=== PATIENT | male | born 1980 | race Caucasian/White ===

== ENCOUNTER 2016-10-20 15:16 | Emergency (ER) | payer MEDICAID ==
[~2016-10-20] VITALS: Ht 170.2 cm; Wt 84.5 kg
[~2016-10-20 15:16] MED LIST: AMO500 PO; D-ME473S18 PO; D-ME473S2 PO; IBUP-1542 PO
[2016-10-20 15:20] VITALS: Ht 170.2 cm; Wt 84.5 kg
[2016-10-20] MEDS ORDERED: GUAI-637 PO (15:25)
[2016-10-20] MEDS ORDERED: IBUP-1542 PO (15:25)
[2016-10-20] MEDS ORDERED: SODI126M NASAL (15:25)
--- NOTE | 2016-10-20 15:31 | ERD ---
ER Documentation Chief Complaint Date/Time DATE: 10/20/16 TIME: 15:26 Chief Complaint sore throat and cough x 10 days HPI 35-year-old male complaining of sore throat and runny nose 10 days. Patient stated that he had tactile fever the first 5 days, and the fever had resolved. He is currently complaining of runny nose tinged with blood and throat pain. He has slight cough. Denies shortness of breath. Denies abdominal pain, vomiting, or diarrhea. Denies headache or neck pain. ROS All systems reviewed and are negative except as per history of present illness. Medications Home Meds Active Scripts Ibuprofen* (Motrin*) 600 Mg Tab, 600 MG PO Q6H Y for PAIN AND OR ELEVATED TEMP, #30 TAB Prov:CHRISTA SANDERS OIL DISPENSER 10/20/16 Guaifenesin* (Robitussin*) 100 Mg/5 Ml Syrup, 200 MG PO Q4H Y for COUGH, #120 ML Prov:CHRISTA SANDERS NP 10/20/16 Sodium Chloride (Saline Nasal Mist) 126 Ml Mist, 2 SPRAY NASAL Q2H Y for NASAL CONGESTION, #1 BOTTLE Prov:CHRISTA SANDERS OIL DISPENSER 10/20/16 Dextromethorphan Hb-Promethazine Hcl (Promethazine DM Syrup) 473 Ml Syrup, 10 ML PO Q6H Y for COUGH, #4 OZ Prov:KAREN KU 03/10/16 Ibuprofen* (Motrin*) 600 Mg Tab, 600 MG PO Q6, #30 TAB Prov:KAREN KU 03/10/16 Dextromethorphan Hb-Promethazine Hcl* (Promethazine DM* Syrup) 473 Ml Syrup, 5 ML PO Q6 Y for COUGH for 5 Days, ML Prov:CESAR GARCIA MD 08/31/15 Amoxicillin* (Amoxicillin*) 500 Mg Cap, 500 MG PO TID for 10 Days, CAP Prov:CESAR GARCIA MD 08/31/15 Ibuprofen* (Motrin*) 600 Mg Tab, 600 MG PO Q6, #16 TAB Prov:CESAR GARCIA MD 08/31/15 PMhx/Soc Medical and Surgical Hx: pt denies Medical Hx History of Surgery: No Anesthesia Reaction: No Hx Neurological Disorder: No Hx Respiratory Disorders: No Hx Cardiac Disorders: No Hx Psychiatric Problems: No Hx Miscellaneous Medical Probl: No Hx Alcohol Use: No Hx Substance Use: No Hx Tobacco Use: No Physical Exam Vitals Vital Signs Date Time Temp Pulse Resp B/P Pulse Ox O2 Delivery O2 Flow Rate FiO2 10/20/16 15:20 98.3 78 18 137/81 97 Physical Exam General: Well-developed, well-nourished, conscious and coherent, in no distress Skin: Warm and dry without rash, good texture and turgor Head: Normocephalic without evidence of trauma Eyes: Sclera and conjunctivae normal; pupils equal, round, and reactive to light; extraocular movements are intact Ears: Canals are patent. Tympanic membranes are clear Nose/Face: Without rhinorrhea Mouth/throat: Mucous membranes are moist. Posterior pharynx mildly erythematous without exudates Neck: Supple without meningismus or adenopathy. Carotids are equal. Trachea midline. No bruits or JVD Chest: Normal AP diameter. Good expansion without retractions. Nontender. Lungs are clear to auscultate bilaterally with good tidal volume Heart: Regular rate and rhythm. No murmur, rub, or gallops heard Abdomen: Soft and nontender without masses, guarding, or rebound. Bowel sounds are active. No hepatosplenomegaly Extremities: Full range of motion. Good strength bilaterally. No clubbing, cyanosis, or edema. Peripheral pulses are intact. Sensation intact Neuro: Alert and oriented 4, GCS 15. Cranial nerves grossly intact. Motor and sensory exams nonfocal. Moves all extremities. Speech clear. Gait normal Procedures/MDM Patient is afebrile, in no respiratory distress. Lungs are clear to auscultate. I doubt that patient has pneumonia or bronchitis. Likely patient's symptoms are result of viral upper respiratory infection. Patient appears well, stable for discharge and outpatient management. Medical decision making shared with patient and family. Education provided to patient and family. Patient and family expressed understanding of the plan. Medications on discharge: Saline nasal spray, ibuprofen, Robitussin. Follow-up: Primary care provider in 2-3 days or return to ED if worse. Departure Diagnosis: Primary Impression: URI (upper respiratory infection) URI type: acute nasopharyngitis (common cold) Qualified Code: J00 - Acute nasopharyngitis Condition: Good Patient Instructions: Adult Self-Care for Colds [facility] Usted se valenzuela hecho un examen mdico de control que le indica que no est en wes condicin que requiera tratamiento urgente en el Departamento de Emergencia. Un estudio ms profundo y el tratamiento de corrigan condicin pueden esperar sin ningn riesgo hasta que usted sea atendida/o en el consultorio de corrigan mdico o wes cl sybil. Es responsabilidad suya arreglar wes hugo para el seguimiento del allison. MANEJO DE CONDICIONES NO URGENTES EN EL FUTURO 1) Si usted tiene un mdico de atencin primaria: Usted debera llamar a corrigan mdico de atencin primaria antes de venir al departamento de emergencia. Despus de las horas de consultorio, corrigan doctor o corrigan asociado/a est disponible por telfono. El mdico o enfermero de lupe en el servicio telefnico puede asesorarle por mona medio para atender el problema, o allison contrario se puede programar wes hugo. 2) Si usted no tiene un mdico de atencin primaria: Llame al mdico o clnica de referencia que aparece abajo pascual las horas de consultorio para hacer ews hugo para que le vean. CLINICAS: [facility] [phone] [id number] [facility] [phone] [facility] [phone] [facility] [phone] [facility]. [facility] [phone] [address] [facility]. [phone] [address] Additional Instructions: Llame al doctor MAANA y myra wes HUGO PARA DENTRO DE 2-3 SANDHU.Dgale a la secretaria que nosotros le instruimos hacer esta hugo.Avise o llame si corrigan condicin se empeora antes de la hugo. Regresa aqui si peor o no mejor. CHRISTA SANDERS. SOFY October 20, 2016 15:31
== END 2016-10-20 15:26 | disposition home or self-care (01) ==
LOC: E/R 15:16
DX: J00 Acute nasopharyngitis [common cold] (principal); R40.2412 Glasgow coma scale score 13-15, at arrival to emergency department
CPT/HCPCS: 99283

== ENCOUNTER 2018-09-12 16:24 | Emergency (ER) | payer MEDICAID, OTHER ==
[~2018-09-12] VITALS: Ht 177.8 cm; Wt 84.4 kg
[~2018-09-12 16:24] MED LIST changes: -AMO500 PO; +AMOX500C2 PO; +GUAI-637 PO; +SODI126M NASAL
[2018-09-12 16:25] VITALS: Ht 177.8 cm; Wt 84.4 kg
[2018-09-12] MEDS ORDERED: FAMOTIDINE 20 MG TAB PO STA (17:05)
--- NOTE | 2018-09-12 17:31 | ERD ---
ER Documentation Chief Complaint Chief Complaint U/R/Q abd pain x 3 days, spitting up a little blood x today HPI 37-year-old male with no significant past medical history presenting with right upper quadrant pain for the past 3 days. The pain is constant, radiating to the back, with no alleviating or exacerbating factors. He rates the pain as a 6 out of 10. No associated fever, chills, nausea, vomiting, cough, shortness of rafia ath, chest pain, diarrhea, or constipation. He states that he has been "spitting up" blood occasionally but denies any vomiting or coughing up blood. The amount of blood is very minimal. He denies any chronic NSAID use, history of gastritis or ulcers. ROS All systems reviewed and are negative except as per history of present illness. Medications Home Meds Active Scripts Omeprazole* (Omeprazole*) 40 Mg Capsule.dr, 40 MG PO DAILY, #10 CAP Prov:FRANK BELTRAN MD 09/12/18 Ibuprofen* (Motrin*) 600 Mg Tab, 600 MG PO Q6H PRN for PAIN AND OR ELEVATED TEMP, #30 TAB Prov:CHRISTA SANDERS NP 10/20/16 Guaifenesin* (Robitussin*) 100 Mg/5 Ml Syrup, 200 MG PO Q4H PRN for COUGH, #120 ML Prov:CHRISTA SANDERS NP 10/20/16 Sodium Chloride (Saline Nasal Mist) 126 Ml Mist, 2 SPRAY NASAL Q2H PRN for NASAL CONGESTION, #1 BOTTLE Prov:CHRISTA SANDERS NP 10/20/16 Dextromethorphan Hb-Promethazine Hcl (Promethazine DM Syrup) 473 Ml Syrup, 10 ML PO Q6H PRN for COUGH, #4 OZ Prov:ELMIRA,KAREN C 03/10/16 Ibuprofen* (Motrin*) 600 Mg Tab, 600 MG PO Q6, #30 TAB Prov:ELMIRA,KAREN C 03/10/16 Dextromethorphan Hb-Promethazine Hcl* (Promethazine DM* Syrup) 473 Ml Syrup, 5 ML PO Q6 PRN for COUGH for 5 Days, ML Prov:CESAR GARCIA MD 08/31/15 Amoxicillin* (Amoxicillin*) 500 Mg Cap, 500 MG PO TID for 10 Days, CAP Prov:CESAR GARCIA MD 08/31/15 Ibuprofen* (Motrin*) 600 Mg Tab, 600 MG PO Q6, #16 TAB Prov:CESAR GARCIA MD 08/31/15 PMhx/Soc Medical and Surgical Hx: pt denies Medical Hx, pt denies Surgical Hx History of Surgery: No Anesthesia Reaction: No Hx Neurological Disorder: No Hx Respiratory Disorders: No Hx Cardiac Disorders: No Hx Psychiatric Problems: No Hx Miscellaneous Medical Probl: No Hx Alcohol Use: No Hx Substance Use: No Hx Tobacco Use: No Smoking Status: Never smoker FmHx Family History: No diabetes Physical Exam Vitals Vital Signs Date Temp Pulse Resp B/P (MAP) Pulse Ox O2 O2 Flow FiO2 Time Delivery Rate 09/12/18 98.8 63 18 117/73 100 Room Air 18:46 (88) 09/12/18 97.2 62 18 123/77 97 16:25 (92) Physical Exam Const: No acute distress, well-appearing, nontoxic Head: Atraumatic Eyes: Normal Conjunctiva ENT: Normal External Ears, Nose and Mouth. Neck: Full range of motion. No meningismus. Resp: Clear to auscultation bilaterally Cardio: Regular rate and rhythm, no murmurs Abd: Soft, non tender, non distended. No palpable masses. No hepatosplenome arash. Normal bowel sounds Skin: No petechiae or rashes Back: No midline or flank tenderness Ext: No cyanosis, or edema Neur: Awake and alert Psych: Normal Mood and Affect Result Diagram: 09/12/18 1726 09/12/18 1726 Results 24 hrs Laboratory Tests Test 09/12/18 17:26 White Blood Count 10.4 10^3/ul Red Blood Count 5.30 10^6/ul Hemoglobin 15.0 g/dl Hematocrit 45.6 % Mean Corpuscular Volume 86.0 fl Mean Corpuscular Hemoglobin 28.3 pg Mean Corpuscular Hemoglobin Concent 32.9 g/dl Red Cell Distribution Width 13.9 % Platelet Count 290 10^3/UL Mean Platelet Volume 10.0 fl Immature Granulocytes % 0.800 % Neutrophils % 54.6 % Lymphocytes % 34.2 % Monocytes % 7.1 % Eosinophils % 2.3 % Basophils % 1.0 % Nucleated Red Blood Cells % 0.0 /100WBC Immature Granulocytes # 0.080 10^3/ul Neutrophils # 5.7 10^3/ul Lymphocytes # 3.6 10^3/ul Monocytes # 0.7 10^3/ul Eosinophils # 0.2 10^3/ul Basophils # 0.1 10^3/ul Nucleated Red Blood Cells # 0.0 10^3/ul Urine Color COLORLESS Urine Clarity CLEAR Urine pH 8.0 Urine Specific [place] 1.005 Urine Ketones NEGATIVE mg/dL Urine Nitrite NEGATIVE mg/dL Urine Bilirubin NEGATIVE mg/dL Urine Urobilinogen NEGATIVE mg/dL Urine Leukocyte Esterase NEGATIVE [place]/ul Urine Hemoglobin NEGATIVE mg/dL Urine Glucose NEGATIVE mg/dL Urine Total Protein NEGATIVE mg/dl Sodium Level 143 mmol/L Potassium Level 4.1 mmol/L Chloride Level 107 mmol/L Carbon Dioxide Level 27 mmol/L Anion Gap 9 Blood Urea Nitrogen 15 mg/dl Creatinine 0.75 mg/dl Est Glomerular Filtrat Rate mL/min > 60 mL/min Glucose Level 96 mg/dl Calcium Level 9.3 mg/dl Total Bilirubin 0.2 mg/dl Direct Bilirubin 0.00 mg/dl Indirect Bilirubin 0.2 mg/dl Aspartate Amino Transf (AST/SGOT) 34 IU/L Alanine Aminotransferase (ALT/SGPT) 33 IU/L Alkaline Phosphatase 120 IU/L Total Protein 7.9 g/dl Albumin 4.4 g/dl Globulin 3.50 g/dl Albumin/Globulin Ratio 1.25 Lipase 81 U/L Current Medications Medications Dose Sig/Jamin Start Time Status Last (Trade) Ordered Route PRN Stop Time Admin Dose Reason Admin Famotidine 20 mg ONCE STAT 09/12/18 DC 09/12/18 (Pepcid) PO 17:05 17:38 09/12/18 17:07 Procedures/MDM EMERGENT LABS AND DIAGNOSTIC STUDIES: Lab Results above were reviewed and interpreted by me. CBC: no anemia or evidence of infection CMP: No evidence of clinically significant electrolyte abnormality, acidosis, renal failure, hypoglycemia, liver disease, or biliary obstruction Lipase: no evidence of pancreatitis UA: no evidence of infection Radiology Results as interpreted by Radiology below were reviewed by Cooper Beltran MD: Ultrasound of the right upper quadrant is unremarkable Initial Nursing notes reviewed. Previous Medical Records requested via the Electronic Health Record. EMERGENCY DEPARTMENT COURSE / MEDICAL DECISION MAKING: Patient is presenting with right upper quadrant pain. Vitals are unremarkable. Differential includes but is not limited to cholecystitis, choledocholithiasis, hepatitis, colitis, pyelonephritis or ureterolithiasis among other etiologies. Labs were done and did not show any acute abnormalities. Ultrasound of the right upper quadrant was also normal. The etiology of his pain is unclear at this time but I do not suspect a serious medical condition. I explained to the patient that he may have a duodenal ulcer that may be the cause of his pain and the fact that he is spitting up blood. Ulcer precautions given. Started the patient on omeprazole. Recommended follow-up with PCP within the next few days if his symptoms continue. He may need an outpatient endoscopy. Return precautions were discussed. All questions answered. Patient's blood pressure was elevated (>120/80) but appears stable without evidence of hypertensive emergency or urgency. The patient was counseled about the risks of hypertension and urged to pursue outpatient monitoring and therapy within a week with their primary care physician. Departure Diagnosis: Primary Impression: Abdominal pain Abdominal location: right upper quadrant Qualified Codes: R10.11 - Right upper quadrant pain Condition: Stable FRANK BELTRAN MD Sep 12, 2018 17:31
[2018-09-12] MEDS ORDERED: OMEP40CA6 PO (18:18)
[2018-09-12 18:46] VITALS: BP 117/73; PULSE 63; RESP 18
== END 2018-09-12 18:48 | disposition home or self-care (01) ==
LOC: FTE 16:24
DX: R10.11 Right upper quadrant pain (principal)
CPT/HCPCS: 36415; 71045; 76705; 80053; 81003; 83690; 85025; Z7502; Z7610